=== PATIENT | male | born 1945 | race Caucasian/White ===

== ENCOUNTER 2018-12-12 23:20 | Emergency (ER) | payer OTHER ==
[~2018-12-12] VITALS: Ht 170.2 cm; Wt 84.8 kg
== END 2018-12-13 15:00 | disposition home or self-care (01) ==
LOC: ER 23:20
DX: R41.0 Disorientation, unspecified (principal); N48.89 Other specified disorders of penis; G20 Parkinson's disease; E86.0 Dehydration